=== PATIENT | male | born 1990 | race Caucasian/White ===

== ENCOUNTER 2024-04-21 12:28 | Emergency (ER) | payer SELFPAY ==
[2024-04-21 12:44] VITALS: BP 158/95; PULSE 72; RESP 18; TEMP 36.5; O2SAT 97; BMI 30.9
--- NOTE | 2024-04-21 12:53 | XRR_ITS ---
PROCEDURE INFORMATION: Exam: XR Left Knee Exam date and time: 04/21/2024 1:08 PM Age: 33 years old Clinical indication: Patient presents with left knee pain. Patient states that he was seen at [facility] [place] and was sent over for possible septic joint. patient presented in otc knee brace. Pain swelling TECHNIQUE: Imaging protocol: Radiologic exam of the left knee. Views: 3 views. COMPARISON: No relevant prior studies available. FINDINGS: Bones/joints: Normal. Soft tissues: Normal. XR/XR knee LT 3V* [id number] IMPRESSION: No acute findings.
--- NOTE | 2024-04-21 12:54 | W.ED.EXTPRO ---
HPI - Extremity Problem General: Chief complaint: Extremity Problem,Nontraumatic Stated complaint: clinic sent--possible septic joint Time Seen by Provider: 04/21/24 12:42 History of Present Illness: 33-year-old male presents emergency room with complaints of pain and swelling in the left knee. Tick bite in the popliteal fossa earlier this week. He noticed a little bit of redness in the popliteal fossa medially there is a small area of discolored skin that is slightly raised no induration. He has not had any drainage from the area. He is felt warm at times subjectively may have had a fever but has not checked anything. States yesterday the knee was quite painful with any weightbearing and seemed quite swollen. He rested elevated applied heat and is quite a bit better today per his report. He was seen at walk-in clinic they are concerned about possible septic joint into the ER. No previous surgery or injury to that joint. Associated symptoms: Deny rash Related Data Previous Rx's Medication Instructions Recorded diclofenac sodium 75 mg 75 mg PO Q12H PRN pain #20 tabs 04/21/24 tablet,delayed release doxycycline hyclate 100 mg capsule 100 mg PO BID 14 days #28 caps 04/21/24 Allergies Allergy/AdvReac Type Severity Reaction Status Date / Time aloe vera Allergy Severe anaphylaxis Verified 04/21/24 12:08 Review of Systems Musc: Reports: joint pain Skin/Breast: Reports: erythema (Isolated spot popliteal fossa); Denies: rash [facility] PFSH: Social History Smoking and tobacco/nicotine status: never used tobacco/nicotine Physical Exam Extremity: OTHER: Examination of the left knee is moderate pain with attempts at flexion extension maybe a small joint effusion no redness no erythema anteriorly. There is a focal spot of inflammation in the popliteal fossa medially without induration. There is no drainage. There is about 1 cm by less than half a centimeter ovoid. Neurovascularly left leg is intact intact distal Course Vital Signs: Vital signs: Vital Signs Temperature 97.7 F 04/21/24 12:44 Pulse Rate 59 L 04/21/24 16:09 Respiratory Rate 18 04/21/24 12:44 Blood Pressure 152/95 04/21/24 16:09 Pulse Oximetry 100 04/21/24 16:09 Oxygen Delivery Me thod Room Air 04/21/24 12:44 MDM - Extremity (Nontraumatic) Medical Decision Making Patient presented with complaint of knee swelling. He does have a small excoriated area on the popliteal fossa. Does not look at the joint effusion is no redness or erythema I can move the joint passively without significant pain. Discussed with on-call orthopedics Dr. Spence. No leukocytosis. Offered to tap the joint to evaluate for infection patient declines. Start him on diclofenac. Because he had a tick bite we will go ahead and put him on course of doxycycline tick panel ordered have him follow-up with his primary care doctor regarding this return if he develops fever worsening swelling or joint pain Medical Records I reviewed the patient's medical records. Lab Data I reviewed the patient's lab results. 04/21/24 13:01 04/21/24 13:01 Radiology Impressions Knee X-Ray 04/21/24 12:53 IMPRESSION: No acute findings. Laboratory Results WBC 5.51 10^3/uL (3.29-11.43) 04/21/24 13:01 RBC 5.14 10^6/uL (3.85-5.65) 04/21/24 13:01 Hgb 15.40 g/dL (11.27-16.99) 04/21/24 13:01 Hct 46.4 % (37-53) 04/21/24 13:01 MCV 90.3 fl (82-101) 04/21/24 13:01 MCH 30.0 pg (27-33) 04/21/24 13:01 MCHC 33.2 g/dL (30-55) 04/21/24 13:01 RDW 12.4 % (12.1-15.1) 04/21/24 13:01 Plt Count 208 10^3/cmm (157-399) 04/21/24 13:01 MPV 10.7 fL (7.4-10.4) H 04/21/24 13:01 Neut % (Auto) 57.8 % 04/21/24 13:01 Lymph % (Auto) 29.9 % 04/21/24 13:01 Ford % (Auto) 8.7 % 04/21/24 13:01 Eos % (Auto) 2.7 % 04/21/24 13:01 Baso % (Auto) 0.5 % 04/21/24 13:01 Neut # (Auto) 3.18 10^3/uL (1.8-7.7) 04/21/24 13:01 Lymph # (Auto) 1.7 10^3/uL (0.8-4.8) 04/21/24 13:01 Ford # (Auto) 0.5 10^3/uL (0.2-0.9) 04/21/24 13:01 Eos # (Auto) 0.2 10^3/uL (0.0-0.8) 04/21/24 13:01 Baso # (Auto) 0.0 10^3/uL (0.0-0.1) 04/21/24 13:01 Nucleated RBC % (auto) 0 % 04/21/24 13:01 Nucleated RBCs # 0.0 /100WBC 04/21/24 13:01 ESR 1 mm/hr (0-10) 04/21/24 13:01 Sodium 140 mmol/L (136-145) 04/21/24 13:01 Potassium 4.4 mmol/L (3.5-5.1) 04/21/24 13:01 Chloride 106 mmol/L (98-107) 04/21/24 13:01 Carbon Dioxide 24 mmol/L (22-29) 04/21/24 13:01 Anion Gap 14.4 (5-19) 04/21/24 13:01 BUN 12 mg/dL (6-20) 04/21/24 13:01 Creatinine 0.9 mg/dL (0.7-1.2) 04/21/24 13:01 GFR Calculation 96.6 mL/min (90-130) 04/21/24 13:01 Glucose 94 mg/dL (65-115) 04/21/24 13:01 Calculated Osmolality 290 mOsm/kg (285-295) 04/21/24 13:01 Calcium 9.1 mg/dL (8.5-10.5) 04/21/24 13:01 Total Bilirubin 0.9 mg/dL (0.15-1.2) 04/21/24 13:01 AST 24 U/L (0-40) 04/21/24 13:01 ALT 62 U/L (0-41) H 04/21/24 13:01 Alkaline Phosphatase 75 U/L (40-130) 04/21/24 13:01 C-Reactive Protein 23.3 mg/L (0.0-4.9) H 04/21/24 13:01 Total Protein 7.5 g/dL (6.6-8.7) 04/21/24 13:01 Albumin 4.4 g/dL (3.5-5.2) 04/21/24 13:01 Globulin 3.1 g/dL (1.3-4.6) 04/21/24 13:01 Lyme Ab (Western Blot) <0.90 index 04/21/24 15:35 E. chaffeensis IgG Ab <1:64 04/21/24 15:35 E. chaffeensis IgM Ab <1:20 04/21/24 15:35 E. chaffeensis Interp See note 04/21/24 15:35 E. chaffeensis Comment Not Reportable 04/21/24 15:35 Rickettsia IgG Ab Not detected 04/21/24 15:35 Rickettsia IgM Ab Not detected 04/21/24 15:35 All radiology interpretation(s) finalized by discharge Discharge Plan Discharge Patient Disposition: Home Clinical Impression: Tick bite, Acute knee pain Condition: Stable Prescriptions: New doxycycline hyclate 100 mg capsule 100 mg PO BID 14 Days Qty: 28 0RF diclofenac sodium 75 mg tablet,delayed release (DR/EC) 75 mg PO Q12H PRN (Reason: pain) Qty: 20 0RF Discharge Orders: Discharge ED (Routine); Ordered 04/21/24 Ordered By: Reggie Adan Discharge Diet: Usual diet Discharge Activity: Increase activity as tolerated Patient Instructions: Opioid Safety, Pain Management Activity Restrictions/Additional Instructions: Thank you for choosing [facility] for your healthcare needs today. It is very important that you follow up as instructed or that you return to the Emergency Department should you have concerns or if your condition changes or worsens in any way. You are seen today for complaint of knee pain after a tick bite. Your white count was normal sed rate was normal CRP was mildly elevated x-ray was normal we did get a culture we also ordered a tick panel on you. Recommend starting doxycycline 100 mg twice a day for 14 days you are given a prescription for diclofenac as well. If you begin to run a fever or have redness or onset of swelling at the joint return to the emergency room. Coding Level of Care Code ED [employer] Supervisor for Jose Choudhary
[2024-04-21 13:19] LABS: Basophils % 0.5 %; Eosinophils # 0.2 10^3/uL (0.0-0.8); Eosinophils % 2.7 %; Hematocrit 46.4 % (37-53); Lymphocytes # 1.7 10^3/uL (0.8-4.8); Lymphocytes % 29.9 %; Mean Corpuscular HGB Conc 33.2 g/dL (30-55); Mean Corpuscular Volume 90.3 fl (82-101); Mean Platelet Volume 10.7 fL (7.4-10.4); Monocytes # 0.5 10^3/uL (0.2-0.9); Monocytes % 8.7 %; Neutrophils # 3.18 10^3/uL (1.8-7.7); Neutrophils % 57.8 %; Nucleated Red Blood Cells % 0 %; Platelet Count 208 10^3/cmm (157-399); Red Blood Count 5.14 10^6/uL (3.85-5.65); Red Cell Distribution Width 12.4 % (12.1-15.1); White Blood Count 5.51 10^3/uL (3.29-11.43)
[2024-04-21 13:25] LABS: Erythrocyte Sedimentation Rate 1 mm/hr (0-10)
[2024-04-21 13:34] LABS: Alanine Aminotransferase 62 U/L (0-41); Albumin Level 4.4 g/dL (3.5-5.2); Alkaline Phosphatase 75 U/L (40-130); Anion Gap 14.4 (5-19); Aspartate Amino Transferase 24 U/L (0-40); Blood Urea Nitrogen 12 mg/dL (6-20); C Reactive Protein 23.3 mg/L (0.0-4.9); Calcium 9.1 mg/dL (8.5-10.5); Carbon Dioxide 24 mmol/L (22-29); Chloride 106 mmol/L (98-107); Creatinine Clr Calc Pharmacy 148.1671; Globulin 3.1 g/dL (1.3-4.6); Glomerular Filtration Rate 96.6 mL/min (90-130); Glucose 94 mg/dL (65-115); Osmolality Calculated 290 mOsm/kg (285-295); Potassium 4.4 mmol/L (3.5-5.1); Sodium 140 mmol/L (136-145); Total Bilirubin 0.9 mg/dL (0.15-1.2); Total Protein 7.5 g/dL (6.6-8.7)
[2024-04-21 16:09] VITALS: BP 152/95; PULSE 59; O2SAT 100
[2024-04-24 04:39] LABS: Lyme AB Screen <0.90 index
[2024-04-26 17:05] LABS: E. Chaffeensis AB IGG <1:64; E. Chaffeensis AB IGM <1:20
[2024-04-26 17:08] LABS: RMSF IGG NOT DETECTED; RMSF IGM NOT DETECTED
== END 2024-04-21 16:11 | disposition home or self-care (01) ==
PROVIDERS: Emergency Provider Family Medicine
DX: M25.562 Pain in left knee (principal); S80.262A Insect bite (nonvenomous), left knee, initial encounter; W57.XXXA Bitten or stung by nonvenomous insect and other nonvenomous arthropods, initial encounter
CPT/HCPCS: 36415; 73562; 80053; 85025; 85651; 86140; 86618; 86666; 86757; 99284